=== PATIENT | female | born 1990 | race Two or more races ===

== ENCOUNTER 2019-01-23 02:23 | Inpatient (IN) | payer MEDICAID ==
[2019-01-23] MEDS ORDERED: Misoprostol 200 MCG Tab PO PRN (02:56)
[2019-01-23] MEDS ORDERED: Carboprost Tromethamine 250 MCG/1 ML Amp IM PRN (02:56)
[2019-01-23] MEDS ORDERED: Methylergonovine 0.2 MG/1 ML Amp IM PRN (02:56)
[2019-01-23] MEDS ORDERED: Sodium Chloride 0.9% 10 ML SDV IV PRN (02:56)
[2019-01-23] MEDS ORDERED: Nalbuphine 10 MG/1 ML Vial IVPUSH PRN (02:56)
[2019-01-23] MEDS ORDERED: Water For Irrigation,Sterile 1,000 ML Container IRR PRN (02:56)
[2019-01-23] MEDS ORDERED: Tranexamic Acid 1,000 MG in Sodium Chloride 0.9% 100 ML IV PRN (02:56)
[2019-01-23] MEDS ORDERED: Sodium Chloride 0.9% 2.5 ML Syringe FLUSH PRN (02:56)
[2019-01-23] MEDS ORDERED: Ampicillin 2 GM in Sodium Chloride 0.9% 100 ML IV ONE (02:56)
[2019-01-23] MEDS ORDERED: Butorphanol 1 MG/ML SDV IVPUSH PRN (02:56)
[2019-01-23] MEDS ORDERED: Lidocaine 1% 50 ML MDV INJECT PRN (02:56)
[2019-01-23] MEDS ORDERED: Sodium Chloride 0.9% 10 ML Syringe FLUSH PRN (02:56)
[2019-01-23] MEDS ORDERED: Lactated Ringers 1,000 ML IV SCH (03:00)
[2019-01-23] MEDS ORDERED: Oxytocin/0.9 % Sodium Chloride 30 UNIT/500 ML BAG IV SCH (03:00)
--- NOTE | 2019-01-23 04:35 | PCM.LDHP ---
L&D History of Present Illness - General Date of Service: 01/23/19 Admit Problem/Dx: Patient Status Order with Admit Dx/Problem 01/23/19 02:36 Patient Status [ADT] Routine 01/23/19 02:56 Patient Status [ADT] Routine Admission Diagnosis/Problem Admission Diagnosis/Problem -related examination Source of Information: Patient History Limitations: Reports: No Limitations - History of Present Illness Improves with: Reports: None Worsens with: Reports: None Associated Symptoms: Reports: N - Related Data Allergies/Adverse Reactions: Allergies Allergy/AdvReac Type Severity Reaction Status Date / Time No Known Allergies Allergy Verified 01/23/19 02:34 Home Medications: Home Meds Ferrous Sulfate [Iron] 325 mg PO 01/23/19 [History] Vits #93/Iron Fum/FA [ Formula Tablet] 1 each PO 01/23/19 [ History] H&P Review of Systems - Review of Systems: Review Of Systems: See Below General: Reports: No Symptoms HEENT: Reports: No Symptoms Pulmonary: Reports: No Symptoms Cardiovascular: Reports: No Symptoms Gastrointestinal: Reports: No Symptoms Genitourinary: Reports: No Symptoms Musculoskeletal: Reports: No Symptoms Skin: Reports: No Symptoms Psychiatric: Reports: No Symptoms Neurological: Reports: No Symptoms Hematologic/Lymphatic: Reports: No Symptoms Immunologic: Reports: No Symptoms L&D Exam - Exam Exam: See Below - Vital Signs Weight: 65.771 kg - OB Specific Contraction Intensity: Mild to Moderate Movement: Active Heart Tones: Present Presentation: Vertex - Cortez Score Cortez Score Cervix Position: Anterior Cortez Score Effacement: >80% Cortez Score Dilation: > 5 cm Cortez Score Infant's Station: -2 - Exam General: Alert, Oriented HEENT: PERRLA, Conjunctiva Clear, EACs Clear, EOMI, Hearing Intact, Mucosa Moist & [place], Nares Patent, Normal Nasal Septum, Posterior Pharynx Clear, TMs Clear Neck: Supple, Trachea Midline Lungs: Clear to Auscultation, Normal Respiratory Effort Cardiovascular: Regular Rate, Regular Rhythm GI/Abdominal Exam: Normal Bowel Sounds, Soft, Non-Tender, No Organomegaly, No Distention, No Abnormal Bruit, No Mass, Pelvis Stable Rectal Exam: Normal Exam, Normal Rectal Tone Genitourinary: Normal external exam, Normal bimanual exam, Normal speculum exam Back Exam: Normal Inspection, Full Range of Motion Extremities: Normal Inspection, Normal Range of Motion, Non-Tender, No Pedal Edema, Normal Capillary Refill Skin: Warm, Dry, Intact Neurological: Cranial Nerves Intact, Reflexes Equal Bilateral Psychiatric: Alert, Normal Affect, Normal Mood - Patient Data Lab Results Last 24 hrs: Laboratory Results - last 24 hr 01/23/19 01/23/19 Range/Units 03:14 03:14 WBC 11.50 H (4.0-11.0) K/uL RBC 4.44 (4.30-5.90) M/uL Hgb 11.2 L (12.0-16.0) g/dL Hct 37.1 (36.0-46.0) % MCV 83.6 (80.0-98.0) fL MCH 25.2 L (27.0-32.0) pg MCHC 30.2 L (31.0-37.0) g/dL RDW Std Deviation 72.0 H (28.0-62.0) fl RDW Coeff of Basil 24 H (11.0-15.0) % Plt Count 227 (150-400) K/uL MPV 10.90 (7.40-12.00) fL Nucleated RBC % 0.0 /100WBC Nucleated RBCs # 0 K/uL Blood Type O POSITIVE Antibody Screen NEGATIVE Result Diagrams: 01/23/19 03:14 Problem List Initiated/Reviewed/Updated: Yes Orders Last 24hrs: Active Orders 24 hr Category Date Time Status Patient Status [ADT] Routine ADT 01/23/19 02:56 Active Heart Tones [RC] CONTINUOUS Care 01/23/19 02:56 Active Non Stress Test [RC] PER UNIT ROUTINE Care 01/23/19 02:36 Active Non Stress Test [RC] PER UNIT ROUTINE Care 01/23/19 02:56 Active May Shower [RC] ASDIRECTED Care 01/23/19 02:56 Active Notify Provider [RC] PRN Care 01/23/19 02:56 Active Up ad Alisa [RC] ASDIRECTED Care 01/23/19 02:36 Active Up ad Alisa [RC] ASDIRECTED Care 01/23/19 02:56 Active Vaginal Exam [RC] Click to Edit Care 01/23/19 02:36 Active Vaginal Exam [RC] PRN Care 01/23/19 02:56 Active Vital Signs [RC] PER UNIT ROUTINE Care 01/23/19 02:36 Active Vital Signs [RC] PER UNIT ROUTINE Care 01/23/19 02:56 Active Regular Diet [DIET] Diet 01/23/19 Breakfast Active Butorphanol [Stadol] Med 01/23/19 02:56 Active 1 mg IVPUSH ASDIRECTED PRN Carboprost Tromethamine [Hemabate DS] Med 01/23/19 02:56 Active 250 mcg IM ASDIRECTED PRN Lactated Ringers [Ringers, Lactated] 1,000 ml Med 01/23/19 03:00 Active IV ASDIRECTED Lidocaine 1% [Xylocaine 1%] Med 01/23/19 02:56 Active 50 ml INJECT ONETIME PRN Methylergonovine [Methergine] Med 01/23/19 02:56 Active 0.2 mg IM ASDIRECTED PRN Nalbuphine [Nubain] Med 01/23/19 02:56 Active 10 mg IVPUSH ASDIRECTED PRN Oxytocin/0.9 % Sodium Chloride [Oxytocin 30 Unit/500 ML Med 01/23/19 03:00 Active -NS] 30 unit in 500 ml IV TITRATE Sodium Chloride 0.9% [Normal Saline] Med 01/23/19 02:56 Active 10 ml IV ASDIRECTED PRN Sodium Chloride 0.9% [Saline Flush] Med 01/23/19 02:56 Active 10 ml FLUSH ASDIRECTED PRN Sodium Chloride 0.9% [Saline Flush] Med 01/23/19 02:56 Active 2.5 ml FLUSH ASDIRECTED PRN Tranexamic Acid [Cyklokapron] 1,000 mg Med 01/23/19 02:56 Active Sodium Chloride 0.9% [Normal Saline] 100 ml IV ONETIME Water For Irrigation,Sterile [Sterile Water for Med 01/23/19 02:56 Active Irrigation] 1,000 ml IRR ASDIRECTED PRN miSOPROStol [Cytotec] Med 01/23/19 02:56 Active 200 mcg PO ONETIME PRN Scalp Electrode [WOMSER] Per Unit Routine Oth 01/23/19 02:56 Ordered Peripheral IV Insertion Adult [OM.PC] Routine Oth 01/23/19 02:56 Ordered Resuscitation Status Routine Resus Stat 01/23/19 02:36 Ordered Medication Orders Butorphanol Tartrate (Stadol) 1 mg IVPUSH ASDIRECTED PRN PRN Reason: Pain Carboprost Tromethamine (Hemabate Ds) 250 mcg IM ASDIRECTED PRN PRN Reason: Post Hemorrhage Tranexamic Acid 1,000 mg/ (Sodium Chloride) 110 mls @ 660 mls/hr IV ONETIME PRN PRN Reason: Bleeding Lactated Ringer's (Ringers, Lactated) 1,000 mls @ 150 mls/hr IV ASDIRECTED [facility] Last Admin: 01/23/19 03:15 Dose: 150 mls/hr Oxytocin/Sodium Chloride (Oxytocin 30 Unit/500 Ml-Ns) 30 unit in 500 mls @ 999 mls/hr IV TITRATE [facility] Lidocaine HCl (Xylocaine 1%) 50 ml INJECT ONETIME PRN PRN Reason: Laceration repair Methylergonovine Maleate (Methergine) 0.2 mg IM ASDIRECTED PRN PRN Reason: Post Hemorrhage Misoprostol (Cytotec) 200 mcg PO ONETIME PRN PRN Reason: Post Hemorrhage Nalbuphine HCl (Nubain) 10 mg IVPUSH ASDIRECTED PRN PRN Reason: Pain (severe 7-10) Sodium Chloride (Saline Flush) 10 ml FLUSH ASDIRECTED PRN PRN Reason: Keep Vein Open Last Admin: 01/23/19 03:15 Dose: 10 ml Sodium Chloride (Saline Flush) 2.5 ml FLUSH ASDIRECTED PRN PRN Reason: Keep Vein Open Sodium Chloride (Normal Saline) 10 ml IV ASDIRECTED PRN PRN Reason: IV Use Sterile Water (Sterile Water For Irrigation) 1,000 ml IRR ASDIRECTED PRN PRN Reason: delivery Assessment/Plan Comment:: Term in active labor.
[2019-01-23] MEDS ORDERED: Oxytocin/0.9 % Sodium Chloride 30 UNIT/500 ML BAG ONE (07:17)
[2019-01-23] MEDS: Ampicillin 1 GM in Sodium Chloride 0.9% 50 ML IV SCH ×2 (07:32→11:29)
[2019-01-23] MEDS ORDERED: Acetaminophen 500 MG Tab PO PRN ×2 (12:10)
[2019-01-23] MEDS ORDERED: Witch Hazel Medicated Pads 40/Jar TOP PRN (12:10)
[2019-01-23] MEDS ORDERED: Docusate Sodium 100 MG Cap PO PRN (12:10)
[2019-01-23] MEDS ORDERED: Ibuprofen 400 MG Tab PO PRN (12:10)
[2019-01-23] MEDS ORDERED: Bisacodyl 10 MG Supp RECTAL PRN (12:10)
[2019-01-23] MEDS ORDERED: Benzocaine/Menthol 20%-0.5% Spray 78 GM Cannister TOP PRN (12:10)
[2019-01-23] MEDS ORDERED: oxyCODONE 5 MG Tab PO PRN (12:10)
[2019-01-23] MEDS ORDERED: Lanolin 100% Cream 7 GM Tube TOP PRN (12:10)
[2019-01-23] MEDS ORDERED: Ibuprofen 800 MG Tab PO PRN (12:10)
[2019-01-24] MEDS: Ampicillin 1 GM in Sodium Chloride 0.9% 50 ML IV SCH (07:41)
--- NOTE | 2019-01-24 11:01 | PCM.PNPP ---
- General Info Date of Service: 01/24/19 Functional Status: Reports: Pain Controlled - Review of Systems General: Reports: No Symptoms HEENT: Reports: No Symptoms Pulmonary: Reports: No Symptoms Cardiovascular: Reports: No Symptoms Gastrointestinal: Reports: No Symptoms Genitourinary: Reports: No Symptoms Musculoskeletal: Reports: No Symptoms Skin: Reports: No Symptoms Neurological: Reports: No Symptoms Psychiatric: Reports: No Symptoms - General Info Date of Service: 01/24/19 - Patient Data Vital Signs - Most Recent: Last Vital Signs Temp 36.8 C 01/24/19 07:50 Pulse 89 01/24/19 07:50 Resp 16 01/24/19 07:50 BP 92/62 01/24/19 07:50 Pulse Ox 98 01/24/19 07:50 Weight - Most Recent: 65.771 kg Lab Results - Last 24 Hours: Laboratory Results - last 24 hr 01/24/19 Range/Units 06:22 Hgb 10.5 L (12.0-16.0) g/dL Hct 35.6 L (36.0-46.0) % Med Orders - Current: Current Medications Acetaminophen (Tylenol Extra Strength) 500 mg PO Q4H PRN PRN Reason: Pain Acetaminophen (Tylenol Extra Strength) 1,000 mg PO Q4H PRN PRN Reason: Pain Benzocaine/Menthol (Dermoplast Pain Relief 20%-0.5% [place]) 78 gm TOP ASDIRECTED PRN PRN Reason: Perineal Comfort Measure Bisacodyl (Dulcolax) 10 mg RECTAL ONETIME PRN PRN Reason: Constipation Butorphanol Tartrate (Stadol) 1 mg IVPUSH ASDIRECTED PRN PRN Reason: Pain Carboprost Tromethamine (Hemabate Ds) 250 mcg IM ASDIRECTED PRN PRN Reason: Post Hemorrhage Docusate Sodium (Colace) 100 mg PO BID PRN PRN Reason: Constipation Emollient Ointment (Lansinoh Hpa) 0 gm TOP ASDIRECTED PRN PRN Reason: Sore Nipples Last Admin: 01/23/19 20:43 Dose: 7 gm Tranexamic Acid 1,000 mg/ (Sodium Chloride) 110 mls @ 660 mls/hr IV ONETIME PRN PRN Reason: Bleeding Lactated Ringer's (Ringers, Lactated) 1,000 mls @ 150 mls/hr IV ASDIRECTED [facility] Last Admin: 01/23/19 03:15 Dose: 150 mls/hr Oxytocin/Sodium Chloride (Oxytocin 30 Unit/500 Ml-Ns) 30 unit in 500 mls @ 999 mls/hr IV TITRATE [facility] Last Admin: 01/23/19 12:22 Dose: 500 mls/hr Ibuprofen (Motrin) 400 mg PO Q4H PRN PRN Reason: Pain Ibuprofen (Motrin) 800 mg PO Q6H PRN PRN Reason: Pain Lidocaine HCl (Xylocaine 1%) 50 ml INJECT ONETIME PRN PRN Reason: Laceration repair Methylergonovine Maleate (Methergine) 0.2 mg IM ASDIRECTED PRN PRN Reason: Post Hemorrhage Misoprostol (Cytotec) 200 mcg PO ONETIME PRN PRN Reason: Post Hemorrhage Nalbuphine HCl (Nubain) 10 mg IVPUSH ASDIRECTED PRN PRN Reason: Pain (severe 7-10) Oxycodone HCl (Oxycodone) 5 mg PO Q2H PRN PRN Reason: Pain Sodium Chloride (Saline Flush) 10 ml FLUSH ASDIRECTED PRN PRN Reason: Keep Vein Open Last Admin: 01/23/19 03:15 Dose: 10 ml Sodium Chloride (Saline Flush) 2.5 ml FLUSH ASDIRECTED PRN PRN Reason: Keep Vein Open Sodium Chloride (Normal Saline) 10 ml IV ASDIRECTED PRN PRN Reason: IV Use Sterile Water (Sterile Water For Irrigation) 1,000 ml IRR ASDIRECTED PRN PRN Reason: delivery Last Admin: 01/23/19 12:22 Dose: 1,000 ml Witch Autumn (Tucks) 1 pad TOP ASDIRECTED PRN PRN Reason: comfort care Discontinued Medications Ampicillin Sodium 2 gm/ Sodium (Chloride) 100 mls @ 200 mls/hr IV ONETIME ONE Stop: 01/23/19 03:25 Last Admin: 01/23/19 03:18 Dose: 200 mls/hr Ampicillin Sodium 1 gm/ Sodium (Chloride) 50 mls @ 100 mls/hr IV Q4H [facility] Last Admin: 01/24/19 07:41 Dose: Not Given Oxytocin/Sodium Chloride (Oxytocin 30 Unit/500 Ml-Ns) Confirm Administered Dose 30 unit in 500 mls @ as directed .ROUTE .STK-MED ONE Stop: 01/23/19 07:18 Last Admin: 01/24/19 07:41 Dose: Not Given - Infant Interaction Disposition, : in Room with Family Infant Interaction: Holding Infant Feeding: Attempted ; Nursed Fair/Poor Support Person: - Recovery Exam Fundal Tone: Firm Fundal Level: 1 Fingerbreadths Below Umbilicus Fundal Placement: Midline Lochia Amount: Small Lochia Color: Rubra/Red Perineum Description: Intact, Minimal Bruising/Swelling Episiotomy/Laceration: None Bladder Status: Voiding Urinary Elimination: Voided - Exam General: Alert, Oriented HEENT: Pupils Equal Neck: Supple Lungs: Clear to Auscultation, Normal Respiratory Effort Cardiovascular: Regular Rate, Regular Rhythm GI/Abdominal Exam: Normal Bowel Sounds, Soft, Non-Tender, No Organomegaly, No Distention, No Abnormal Bruit, No Mass, Pelvis Stable Extremities: Normal Inspection, Normal Range of Motion, Non-Tender, No Pedal Edema, Normal Capillary Refill Skin: Warm, Dry, Intact Wound/Incisions: Healing Well Neurological: No New Focal Deficit Psy/Mental Status: Alert, Normal Affect, Normal Mood - Problem List Review Problem List Initiated/Reviewed/Updated: Yes - My Orders Last 24 Hours: My Active Orders 01/23/19 12:10 Acetaminophen [Tylenol Extra Strength] 1,000 mg PO Q4H PRN Acetaminophen [Tylenol Extra Strength] 500 mg PO Q4H PRN Benzocaine/Menthol [Dermoplast Pain Relief 20%-0.5% [place]] 78 gm TOP ASDIRECTED PRN Bisacodyl [Dulcolax] 10 mg RECTAL ONETIME PRN Docusate Sodium [Colace] 100 mg PO BID PRN Ibuprofen [Motrin] 400 mg PO Q4H PRN Ibuprofen [Motrin] 800 mg PO Q6H PRN Lanolin [Lansinoh HPA] See Dose Instructions TOP ASDIRECTED PRN Witch Autumn [Tucks] 1 pad TOP ASDIRECTED PRN oxyCODONE 5 mg PO Q2H PRN 01/23/19 12:11 Patient Status [ADT] Routine Vital Signs [RC] PER UNIT ROUTINE Assess Lochia [WOMSER] Per Unit Routine Assess Uterine Involution [WOMSER] Per Unit Routine Peripheral IV Discontinue [OM.PC] Routine - Assessment Assessment:: S/P doing ok. - Plan Plan:: Term in active labor.
--- NOTE | 2019-01-25 08:06 | OR ---
SURGEON: Rikki Escobar MD DATE OF PROCEDURE: 01/23/2019 Ms. Najera is 28. She is para 4-0-0-4. She has transferred her care late to our clinic. I have seen her in the office. Her GBS status was positive. Otherwise, she had no issue. The patient is admitted in active labor. At the time of admission, she was 5 cm, intact, vertex, -1 station. The patient was started on appropriate antibiotic. She received 2 doses of antibiotic. The patient declined the epidural. She progressed to 8 cm, complete, vertex, and 0 to +1 station. However, her labor was slowed, so I did an artificial rupture of the membranes, which showed meconium-stained fluid. After that, the patient progressed, and she was able to accomplish normal spontaneous vaginal delivery, female fetus, cried immediately. scores reported to be 8 and 9. The weight is not available. The placenta delivered spontaneous, complete, and intact. There was no need for episiotomy. There was no perineal, labial, or vaginal laceration. Estimated blood loss was 300 to 350 mL. heart rate was category 1 through the entire process of labor. There was no complication in the labor and in the delivery process. GIORGI / ALVIN /[id number]
== END 2019-01-24 16:28 | disposition home or self-care (01) | DRG 807 ==
LOC: MW.OBCHECK 02:23 → MW.OB 02:28 → MW.OBCHECK 02:56 → MW.OB 02:56 → OBSVTOIN 12:03 → MW.OB 15:43
PROVIDERS: ADMIT Obstetrics & Gynecology; ATTEND Obstetrics & Gynecology
PROC: 10907ZC Drainage of Amniotic Fluid, Therapeutic from Products of Conception, Via Natural or Artificial Opening (ICD-10-PCS; principal; 2019-01-23)
PROC: 10E0XZZ Delivery of Products of Conception, External Approach (ICD-10-PCS; 2019-01-23)
DX: O48.0 Post-term pregnancy (principal); O99.824 Streptococcus B carrier state complicating childbirth; O77.0 Labor and delivery complicated by meconium in amniotic fluid; Z3A.41 41 weeks gestation of pregnancy; Z37.0 Single live birth
CPT/HCPCS: 36415; 59025; 59409; 85014; 85018; 85027; 86850; 86900; 86901; A9270-GY; J0290; J2590; J7030; J7050; J7120